=== PATIENT | female | born 1955 | race American Indian/Alaskan Native ===

== ENCOUNTER 2017-02-28 17:34 | Inpatient (IN) | payer MEDICARE ==
[2017-02-28 18:12] LABS: Basophils % (Auto) 0.3 % (0.0-1.8); Eosinophils # (Auto) 0.1 K/mm3 (0.0-0.4); Hematocrit 31.2 % (30.3-42.9); Hemoglobin 9.7 gm/dl (10.1-14.3); Lymphocytes # (Auto) 2.1 K/mm3 (1.2-5.4); Lymphocytes % (Auto) 29.7 % (13.4-35.0); Mean Corpuscular HGB Conc 31 % (30-34); Mean Corpuscular Hemoglobin 26 pg (28-32); Mean Corpuscular Volume 83 fl (79-97); Monocytes # (Auto) 0.5 K/mm3 (0.0-0.8); Platelet Count 206 K/mm3 (140-440); Red Blood Count 3.74 M/mm3 (3.65-5.03); Red Cell Distribution Width 15.5 % (13.2-15.2)
[2017-02-28 18:33] LABS: INR 0.84 (0.87-1.13)
[2017-02-28 18:34] LABS: Partial Thromboplastin Time 27.7 Sec. (24.2-36.6); Thrombin Time 16.1 Sec. (15.1-19.6)
[2017-02-28 18:35] LABS: BUN/Creatinine Ratio 25; Blood Urea Nitrogen 28 mg/dL (7-17); Calcium 9.3 mg/dL (8.4-10.2); Hemolysis Index 8
--- NOTE | 2017-02-28 19:39 | Cat Scan Report ---
FINAL REPORT EXAM: CT HEAD/BRAIN WO CON HISTORY: neuro deficits < 6hrs or sx present upon awakening TECHNIQUE: Standard unenhanced CT of the head at 5.0 millimeter axial increments. PRIORS: None. FINDINGS: The ventricular system is normal in size and configuration. There is no evidence for parenchymal volume loss. Low-density in the periventricular white matter is the consistent with small vessel ischemic changes. There is no evidence for mass lesion, mass effect, midline shift, acute intracranial hemorrhage, or acute ischemia/ infarction. No evidence for acute skull fracture is seen. No abnormality in the overlying scalp soft tissues is seen. Visualized paranasal sinuses are clear. IMPRESSION: small-vessel ischemic changes. No acute intracranial process noted.
--- NOTE | 2017-02-28 20:15 | Emergency Department Report ---
ED Neuro Deficit HPI - General Chief Complaint: Neuro Symptoms/Deficit Stated Complaint: NUMBNESS, HX CVA Time Seen by Provider: 02/28/17 18:49 Source: patient, EMS Mode of arrival: Stretcher Limitations: Physical Limitation - History of Present Illness Initial Comments: Patient is a 61-year-old female with past medical history of hypertension and CVA with residual weakness on the left upper and lower extremity was presenting with numbness and increased weakness. Patient states that only 4 PM today she began having some increased numbness. Patient called her daughter and told her and they decided to have the patient brought to the emergency department. Patient has had no syncope headache nausea vomiting diarrhea chest pain at this time. Presenting Symptoms: Absent: Weak/Paralyzed One Side, Sudden, Severe Headache, Blurred/Loss of Vision, Facial Droop/Numbness, Unable to Speak Clearly, Altered Mental Status Severity: mild (patient states that she already has weakness to the left side but the weakness is slightly worse patient has a slight increase in her limp) Treatments Prior to Arrival: Aspirin (patient took an aspirin prior to arrival) - Related Data Home Medications: Home Medications Medication Instructions Recorded Confirmed Last Taken Aspirin [Aspirin TAB] 1 tab PO DAILY 09/22/13 09/25/13 09/24/13 Brinzolamide/Brimonidine Tart 1 drop OU DAILY 09/22/13 09/25/13 09/24/13 [Simbrinza 1%-0.2% Eye Drops] Ferrous Sulfate [Iron Supplement 1 tab PO DAILY 09/22/13 09/25/13 09/24/13 325 Mg tab] Insulin Aspart [NovoLOG 100 10 units SC TID 09/22/13 09/25/13 09/24/13 UNITS/ML VIAL] Insulin Glargine,Hum.rec.anlog 20 units SC QHS 09/22/13 09/25/13 09/24/13 [Lantus] Lisinopril [Zestril] 1 tab PO DAILY 09/22/13 09/25/13 09/25/13 Lovastatin [Mevacor] 1 tab PO DAILY 09/22/13 09/25/13 09/24/13 Sertraline [Zoloft] 1 tab PO DAILY 09/22/13 09/25/13 09/24/13 Sitagliptin Phosphate [Januvia] 1 tab PO DAILY 09/22/13 09/25/13 09/24/13 amLODIPine [Norvasc] 1 tab PO DAILY 09/22/13 09/25/13 09/25/13 metFORMIN [Glucophage] 1 tab PO DAILY 09/22/13 09/25/13 09/24/13 Allergies/Adverse Reactions: Allergies Allergy/AdvReac Type Severity Reaction Status Date / Time No Known Allergies Allergy Verified 09/22/13 14:45 ED Review of Systems ROS: Stated complaint: NUMBNESS, HX CVA Other details as noted in HPI Comment: All other systems reviewed and negative ED Past Medical Hx - Past Medical History Previous Medical History?: Yes Hx CVA: Yes (left side weakness residual) Hx Diabetes: Yes Hx Asthma: No Hx COPD: No Hx Tuberculosis: No - Surgical History Past Surgical History?: Yes Hx Cholecystectomy: Yes - Social History Smoking Status: Former Smoker Substance Use Type: Prescribed - Medications Home Medications: Home Medications Medication Instructions Recorded Confirmed Last Taken Type Aspirin [Aspirin TAB] 1 tab PO DAILY 09/22/13 09/25/13 09/24/13 History Brinzolamide/Brimonidine Tart 1 drop OU DAILY 09/22/13 09/25/13 09/24/13 History [Simbrinza 1%-0.2% Eye Drops] Ferrous Sulfate [Iron Supplement 1 tab PO DAILY 09/22/13 09/25/13 09/24/13 History 325 Mg tab] Insulin Aspart [NovoLOG 100 10 units SC TID 09/22/13 09/25/13 09/24/13 History UNITS/ML VIAL] Insulin Glargine,Hum.rec.anlog 20 units SC QHS 09/22/13 09/25/13 09/24/13 History [Lantus] Lisinopril [Zestril] 1 tab PO DAILY 09/22/13 09/25/13 09/25/13 History Lovastatin [Mevacor] 1 tab PO DAILY 09/22/13 09/25/13 09/24/13 History Sertraline [Zoloft] 1 tab PO DAILY 09/22/13 09/25/13 09/24/13 History Sitagliptin Phosphate [Januvia] 1 tab PO DAILY 09/22/13 09/25/13 09/24/13 History amLODIPine [Norvasc] 1 tab PO DAILY 09/22/13 09/25/13 09/25/13 History metFORMIN [Glucophage] 1 tab PO DAILY 09/22/13 09/25/13 09/24/13 History ED Neuro Physical Exam - General Limitations: Physical Limitation General appearance: alert, in no apparent distress Suspected Stroke: Yes - Head Head exam: Present: atraumatic, normocephalic - Eye Eye exam: Present: normal appearance - ENT ENT exam: Present: mucous membranes moist - Neck Neck exam: Present: normal inspection - Respiratory Respiratory exam: Present: normal lung sounds bilaterally. Absent: respiratory distress - Cardiovascular Cardiovascular Exam: Present: regular rate, normal rhythm. Absent: systolic murmur, diastolic murmur, rubs, gallop - GI/Abdominal GI/Abdominal exam: Present: soft, normal bowel sounds - Extremities Exam Extremities exam: Present: normal inspection - Back Exam Back exam: Present: normal inspection - Neurological Exam Neurological exam: Present: alert, oriented X3 - NIHSS Assessment Interval: Baseline 1a. Level of Consciousness: alert 1b. LOC Questions: answers correctly 1c. LOC Commands: performs tasks correctly 2. Best Gaze: normal 3. Visual: no visual loss 4. Facial Palsy: normal symmetrical movement 5b. Motor Arm Right: no drift 5a. Motor Arm Left: drift 6a. Motor Leg Left: no drift 6b. Motor Leg Right: drift 7. Limb Ataxia: absent 8. Sensory: mild/moderate sensory loss 9. Best Language: no aphasia 10. Dysarthria: normal 11. Extinction/Inattention: no abnormality Total Score: 3 Stroke Severity: Minor Stroke - Psychiatric Psychiatric exam: Present: normal affect, normal mood - Skin Skin exam: Present: warm, dry, intact, normal color. Absent: rash ED Course Vital Signs 02/28/17 02/28/17 02/28/17 17:45 17:49 18:00 Temperature 97.5 F L Pulse Rate 74 74 76 Respiratory 15 16 Rate Blood Pressure 132/73 142/83 O2 Sat by Pulse 100 100 100 Oximetry 02/28/17 02/28/17 02/28/17 18:16 18:30 19:00 Temperature Pulse Rate 74 73 Respiratory 12 23 18 Rate Blood Pressure 142/83 142/83 O2 Sat by Pulse 97 98 99 Oximetry - Lab Data Result diagrams: 02/28/17 18:00 02/28/17 18:00 Lab Results 02/28/17 02/28/17 02/28/17 Range/Units 18:00 18:00 18:00 WBC 7.2 (4.5-11.0) K/mm3 RBC 3.74 (3.65-5.03) M/mm3 Hgb 9.7 L (10.1-14.3) gm/dl Hct 31.2 (30.3-42.9) % MCV 83 (79-97) fl MCH 26 L (28-32) pg MCHC 31 (30-34) % RDW 15.5 H (13.2-15.2) % Plt Count 206 (140-440) K/mm3 Lymph % (Auto) 29.7 (13.4-35.0) % [place] % (Auto) 7.0 (0.0-7.3) % Eos % (Auto) 1.0 (0.0-4.3) % Baso % (Auto) 0.3 (0.0-1.8) % Lymph # 2.1 (1.2-5.4) K/mm3 [place] # 0.5 (0.0-0.8) K/mm3 Eos # 0.1 (0.0-0.4) K/mm3 Baso # 0.0 (0.0-0.1) K/mm3 Seg Neutrophils % 62.0 (40.0-70.0) % Seg Neutrophils # 4.5 (1.8-7.7) K/mm3 PT 11.9 L (12.2-14.9) Sec. INR 0.84 L (0.87-1.13) APTT 27.7 (24.2-36.6) Sec. Thrombin Time 16.1 (15.1-19.6) Sec. Sodium 142 (137-145) mmol/L Potassium 4.2 (3.6-5.0) mmol/L Chloride 104.4 (98-107) mmol/L Carbon Dioxide 26 (22-30) mmol/L Anion Gap 16 mmol/L BUN 28 H (7-17) mg/dL Creatinine 1.1 (0.7-1.2) mg/dL Estimated GFR > 60 ml/min BUN/Creatinine Ratio 25 % Glucose 112 H (65-100) mg/dL Calcium 9.3 (8.4-10.2) mg/dL Troponin T < 0.010 (0.00-0.029) ng/mL - Medical Decision Making Patient is a 61-year-old female with a past medical history of stroke who is having slight increase in her lamp and weakness on the left side. Patient's symptoms are only slightly increased from her baseline. Patient will be admitted for further evaluation and neuro consult. Patient is not meeting criteria for TPA Critical care attestation.: If time is entered above; I have spent that time in minutes in the direct care of this critically ill patient, excluding procedure time. ED Disposition Clinical Impression: CVA (cerebral vascular accident) Disposition: DC-[id number] OP ADMIT IP TO THIS HOSP Is pt being admited?: Yes Does the pt Need Aspirin: No Condition: Stable Referrals: LUZ MCMAHAN MD [Primary Care Provider] - 3-5 Days
[2017-02-28] MEDS ORDERED: ZOFRAN IV PRN (20:29)
[2017-02-28] MEDS ORDERED: TYLENOL PO PRN (20:29)
[2017-02-28] MEDS ORDERED: SODIUM CHLORIDE FLUSH SYRINGE 10 ML IV PRN (20:29)
[2017-02-28] MEDS ORDERED: REGLAN PO PRN (20:29)
[2017-02-28] MEDS ORDERED: DULCOLAX PR PRN (20:29)
[2017-02-28] MEDS ORDERED: PHENERGAN PR PRN (20:29)
[2017-02-28] MEDS ORDERED: MILK OF MAGNESIA PO PRN (20:29)
--- NOTE | 2017-02-28 20:29 | History and Physical Report ---
History of Present Illness Chief complaint: I feel weak on my left side History of present illness: 61 YO Female with MO, DM, HTN, CVA with LHP, Metabolic Syndrome presents to ED for evaluation. Pt states that she experienced acute onset left sided weakness and numbness. Patient states that aroung 1600hrs today-she began having some increased numbness, weakness to her the left side of her body, as well as slurred speech. Patient called her daughter and told her and they decided to have the patient brought to the emergency department. EMS notified and patient transported to [facility] for evaluation. Pt seen and evaluated in ED and found to have slurred speech, and Left hemiparesis, but is outside the therapeutic window for TPA. Patient denies fever, chills, CP, Palpitations, NVD, syncope, headache, blurred vision, headache, productive cough, trauma, recent ill contacts, unintentional weight loss, night sweats, leg swelling, calf pain, prolonged travel/immobility, individual/family history of DVT/PE, hemoptysis, or malignancy. Past History Past Medical History: diabetes, hypertension, stroke Past Surgical History: cholecystectomy Social history: single. denies: smoking, alcohol abuse, prescription drug abuse Family history: hypertension Medications and Allergies Allergies Allergy/AdvReac Type Severity Reaction Status Date / Time No Known Allergies Allergy Verified 09/22/13 14:45 Home Medications Medication Instructions Recorded Confirmed Last Taken Type Aspirin [Aspirin TAB] 1 tab PO DAILY 09/22/13 03/01/17 1 Day Ago History ~02/28/17 Brinzolamide/Brimonidine Tart 1 drop OU DAILY 09/22/13 03/01/17 2 Days Ago History [Simbrinza 1%-0.2% Eye Drops] ~02/27/17 Ferrous Sulfate [Iron Supplement 1 tab PO DAILY 09/22/13 03/01/17 2 Days Ago History 325 Mg tab] ~02/27/17 Insulin Aspart [NovoLOG 100 10 units SC TID 09/22/13 03/01/17 2 Days Ago History UNITS/ML VIAL] ~02/27/17 Insulin Glargine,Hum.rec.anlog 20 units SC QHS 09/22/13 03/01/17 2 Days Ago History [Lantus] ~02/27/17 Lisinopril [Zestril] 1 tab PO DAILY 09/22/13 03/01/17 2 Days Ago History ~02/27/17 Lovastatin [Mevacor] 1 tab PO DAILY 09/22/13 03/01/17 02/27/17 History Sertraline [Zoloft] 1 tab PO QHS 09/22/13 03/01/17 2 Days Ago History ~02/27/17 Sitagliptin Phosphate [Januvia] 1 tab PO DAILY 09/22/13 03/01/17 2 Days Ago History ~02/27/17 amLODIPine [Norvasc] 1 tab PO DAILY 09/22/13 03/01/17 1 Day Ago History ~02/28/17 metFORMIN [Glucophage] 1 tab PO DAILY 09/22/13 03/01/17 2 Days Ago History ~02/27/17 Review of Systems Constitutional: no weight loss, no weight gain, no fever, no chills Ears, nose, mouth and throat: no ear pain, no ear discharge, no tinnitis, no decreased hearing, no nose pain Breasts: no change in shape, no swelling, no mass Cardiovascular: no chest pain, no orthopnea, no palpitations, no rapid/ irregular heart beat, no edema, no syncope, no lightheadedness Respiratory: no cough, no cough with sputum, no excessive sputum, no hemoptysis , no shortness of breath Gastrointestinal: no abdominal pain, no nausea, no vomiting, no diarrhea, no constipation Genitourinary Female: no dysmenorrhea, no pelvic pain, no flank pain, no menorrhagia, no dysuria Rectal: no pain, no incontinence, no bleeding Musculoskeletal: no neck stiffness, no neck pain, no shooting arm pain, no arm numbness/tingling, no low back pain, no shooting leg pain, no leg numbness/ tingling, no redness of joints Integumentary: no rash, no pruritis, no redness, no sores, no wounds, no jaundice Neurological: transient paralysis, weakness, no seizures, no syncope, no tremors , no ataxia Psychiatric: no anxiety, no memory loss, no change in sleep habits, no sleep disturbances, no insomnia Endocrine: no cold intolerance, no heat intolerance, no polyphagia, no excessive thirst, no polydipsia Hematologic/Lymphatic: no easy bruising, no easy bleeding, no lymphadenopathy, no lymphedema Allergic/Immunologic: no urticaria, no allergic rhinitis, no wheezing, no persistent infections Exam - Constitutional Vitals: Temp Pulse Resp BP Pulse Ox 97.5 F L 73 18 142/83 99 02/28/17 17:49 02/28/17 18:30 02/28/17 19:00 02/28/17 18:30 02/28/17 19:00 General appearance: Present: obese, disheveled - EENT Eyes: Present: PERRL ENT: hearing intact, clear oral mucosa - Neck Neck: Present: supple, normal ROM - Respiratory Respiratory effort: normal Respiratory: bilateral: CTA - Cardiovascular Heart Sounds: Present: S1 & S2. Absent: rub, click - Extremities Extremities: pulses symmetrical, No edema Peripheral Pulses: within normal limits - Abdominal General gastrointestinal: Present: soft, non-tender, non-distended, normal bowel sounds Female genitourinary: Present: normal - Integumentary Integumentary: Present: clear, warm, dry - Musculoskeletal Musculoskeletal: left sided weakness - Psychiatric Psychiatric: appropriate mood/affect, intact judgment & insight - Neurologic Neurologic: CNII-XII intact, moves all extremities Results - Labs CBC & Chem 7: 02/28/17 18:00 02/28/17 18:00 Labs: Abnormal lab results 02/28/17 02/28/17 02/28/17 Range/Units 18:00 18:00 18:00 Hgb 9.7 L (10.1-14.3) gm/dl MCH 26 L (28-32) pg RDW 15.5 H (13.2-15.2) % PT 11.9 L (12.2-14.9) Sec. INR 0.84 L (0.87-1.13) BUN 28 H (7-17) mg/dL Glucose 112 H (65-100) mg/dL Assessment and Plan - Patient Problems (1) CVA (cerebral vascular accident) Current Visit: Yes Status: Acute Qualifiers: Precerebral and cerebral artery: middle cerebral artery Laterality of affected vessel: right Plan to address problem: Stroke protocol: CT Head, MRI Brain, MRA Brain, Echo, Carotid Doppler, Antiplatelet therapy, PT/OT/ Speech Therapy, Neuro Checks, lipid panel. (2) HTN (hypertension) Current Visit: Yes Status: Acute Qualifiers: Hypertension type: essential hypertension Qualified Code(s): I10 - Essential (primary) hypertension Plan to address problem: Monitor BP q shift, permissive hypertension overnight, Hold antihypertensive therapy for systolic less than 200. (3) Diabetes Current Visit: Yes Status: Acute Plan to address problem: ADA diet, insulin accu check (4) Metabolic syndrome Current Visit: Yes Status: Acute Plan to address problem: Balanced diet, lipid panel, increased physical activity at discharge (5) DVT prophylaxis Current Visit: Yes Status: Acute
[2017-02-28] MEDS ORDERED: INSULIN GLARGINE HUM REC ANLOG 20 UNIT SC SCH (22:00)
[2017-02-28] MEDS: LEVEMIR SUB-Q SCH (22:51)
[2017-02-28] MEDS: PRAVACHOL PO SCH (22:52)
[2017-02-28] MEDS: ZOLOFT PO SCH (23:58)
[2017-03-01 06:28] LABS: Chol/HDL Ratio 2.27 %
[2017-03-01] MEDS: NOVOLOG SUB-Q SCH ×3 (08:00→17:29)
[2017-03-01] MEDS ORDERED: BRIMONIDINE TART OU SCH (10:00)
[2017-03-01] MEDS ORDERED: LOVASTATIN PO SCH (10:00)
[2017-03-01] MEDS ORDERED: BRINZOLAMIDE OU SCH (10:00)
[2017-03-01] MEDS: FEOSOL PO SCH (13:45)
[2017-03-01] MEDS: ASPIRIN PO SCH (13:45)
[2017-03-01] MEDS: ZESTRIL PO SCH (13:46)
--- NOTE | 2017-03-01 14:35 | Magnetic Resonance Report ---
MRI BRAIN WITHOUT CONTRAST INDICATION: Stroke. COMPARISON: Yesterday's head CT. FINDINGS: Noncontrast multiplanar and multisequence MRI of the brain demonstrates a 4 mm acute infarct posteriorly in the [place] on the right. No other acute infarct, hemorrhage, mass effect or midline shift. No abnormal extra-axial masses or fluid collections. Age-appropriate ventricles and sulci with moderate periventricular and white matter FLAIR and T2 weighted hyperintensities. Few small lacunar infarcts as measuring up to 5-6 mm right linares radiata. Normal major intracranial vascular flow voids. Posterior fossa demonstrates preserved basilar cisterns with symmetric seventh and eighth nerve complexes. Bilateral cataract surgery. Mild leftward nasal septal deviation. Clear imaged paranasal sinuses and mastoid air cells. Normal midline structures without evidence of Chiari malformation. CONCLUSION: Small, 4 mm acute nonhemorrhagic right pontine infarct posteriorly in this patient with moderate microvascular changes and few lacunar infarcts as well, as described. Please correlate. Thank you for the opportunity to participate in this patient's care.
--- NOTE | 2017-03-01 14:39 | Magnetic Resonance Report ---
MRA HEAD WITHOUT CONTRAST INDICATION: Stroke. COMPARISON: None similar. FINDINGS: MRA of the head performed without intravenous contrast and demonstrates no evidence of occlusion or vascular malformation. Mild caliber attenuation of the left ICA distal to its anterior siphon/turn noted, left more than right as on axial source series 3, images 65-75 in this patient with extensive atherosclerotic ICA calcifications known by prior CT. Patent vertebrobasilar system. Please note that detection of aneurysms less than 5 mm is limited on this exam. CONCLUSION: Normal study of the [place]. Thank you for the opportunity to participate in this patient's care.
--- NOTE | 2017-03-01 16:15 | Progress Note ---
<ELIZABETH SHAFFER - Last Filed: 03/01/17 16:04> Assessment and Plan Assessment and plan: 61 YO Female with MO, DM, HTN, CVA with LHP, Metabolic Syndrome presents to ED for evaluation. Pt states that she experienced acute onset left sided weakness and numbness. Patient states that aroung 1600hrs today-she began having some increased numbness, weakness to her the left side of her body, as well as slurred speech. Patient called her daughter and told her and they decided to have the patient brought to the emergency department. Pt seen and evaluated in ED and found to have slurred speech, and Left hemiparesis, but is outside the therapeutic window for TPA. CVA (cerebral vascular accident) Stroke protocol: Continue Antiplatelet therapy, PT/OT/ Speech Therapy, Neuro Checks MRI Brain showed small 4mm acute nonhemorrhagic R pontine infarct- Neurology consulted Carotid doppler showed <50% STENOSIS NOTED BILAT BY DOPPLER VELOCITIES. BILAT. ANTEG. VERT FLOWS MRA Brain was normal, Echo results pending, CT Head showed no acute intracranial changes HTN (hypertension) Monitor BP q shift, permissive hypertension overnight, Hold antihypertensive therapy for systolic less than 200. Diabetes ADA diet, insulin accu check Metabolic syndrome Balanced diet, lipid panel, increased physical activity at discharge DVT prophylaxis SCDs History Interval history: Patient was seen and examined. She denies chest pain, shortness of breath, nausea, vomiting. Labs and nursing notes reviewed. Hospitalist Physical - Constitutional Vitals: Temp Pulse Resp BP Pulse Ox 98.7 F 73 18 149/75 91 03/01/17 07:10 03/01/17 14:00 03/01/17 07:10 03/01/17 13:46 03/01/17 07:10 General appearance: Present: no acute distress, obese, disheveled - EENT Eyes: Present: PERRL, EOM intact ENT: hearing intact, clear oral mucosa - Neck Neck: Present: supple, normal ROM - Respiratory Respiratory effort: normal Respiratory: bilateral: CTA - Cardiovascular Rhythm: regular Heart Sounds: Present: S1 & S2 - Extremities Extremities: no ischemia Extremity abnormal: edema - Abdominal General gastrointestinal: soft, non-tender - Integumentary Integumentary: Present: clear, warm, dry - Psychiatric Psychiatric: appropriate mood/affect, cooperative - Neurologic Neurologic: CNII-XII intact, moves all extremities - Allied Health Allied health notes reviewed: nursing Results - Labs CBC & Chem 7: 02/28/17 18:00 02/28/17 18:00 Labs: Laboratory Last Values WBC 7.2 K/mm3 (4.5-11.0) 02/28/17 18:00 RBC 3.74 M/mm3 (3.65-5.03) 02/28/17 18:00 Hgb 9.7 gm/dl (10.1-14.3) L 02/28/17 18:00 Hct 31.2 % (30.3-42.9) 02/28/17 18:00 MCV 83 fl (79-97) 02/28/17 18:00 MCH 26 pg (28-32) L 02/28/17 18:00 MCHC 31 % (30-34) 02/28/17 18:00 RDW 15.5 % (13.2-15.2) H 02/28/17 18:00 Plt Count 206 K/mm3 (140-440) 02/28/17 18:00 Lymph % (Auto) 29.7 % (13.4-35.0) 02/28/17 18:00 [place] % (Auto) 7.0 % (0.0-7.3) 02/28/17 18:00 Eos % (Auto) 1.0 % (0.0-4.3) 02/28/17 18:00 Baso % (Auto) 0.3 % (0.0-1.8) 02/28/17 18:00 Lymph # 2.1 K/mm3 (1.2-5.4) 02/28/17 18:00 [place] # 0.5 K/mm3 (0.0-0.8) 02/28/17 18:00 Eos # 0.1 K/mm3 (0.0-0.4) 02/28/17 18:00 Baso # 0.0 K/mm3 (0.0-0.1) 02/28/17 18:00 Seg Neutrophils % 62.0 % (40.0-70.0) 02/28/17 18:00 Seg Neutrophils # 4.5 K/mm3 (1.8-7.7) 02/28/17 18:00 PT 11.9 Sec. (12.2-14.9) L 02/28/17 18:00 INR 0.84 (0.87-1.13) L 02/28/17 18:00 APTT 27.7 Sec. (24.2-36.6) 02/28/17 18:00 Thrombin Time 16.1 Sec. (15.1-19.6) 02/28/17 18:00 Sodium 142 mmol/L (137-145) 02/28/17 18:00 Potassium 4.2 mmol/L (3.6-5.0) 02/28/17 18:00 Chloride 104.4 mmol/L (98-107) 02/28/17 18:00 Carbon Dioxide 26 mmol/L (22-30) 02/28/17 18:00 Anion Gap 16 mmol/L 02/28/17 18:00 BUN 28 mg/dL (7-17) H 02/28/17 18:00 Creatinine 1.1 mg/dL (0.7-1.2) 02/28/17 18:00 Estimated GFR > 60 ml/min 02/28/17 18:00 BUN/Creatinine Ratio 25 % 02/28/17 18:00 Glucose 112 mg/dL (65-100) H 02/28/17 18:00 POC Glucose 149 (70-105) H 03/01/17 07:17 Calcium 9.3 mg/dL (8.4-10.2) 02/28/17 18:00 Troponin T < 0.010 ng/mL (0.00-0.029) 02/28/17 18:00 Triglycerides 171 mg/dL (2-149) H 03/01/17 05:43 Cholesterol 173 mg/dL (50-199) 03/01/17 05:43 LDL Cholesterol Direct 63 mg/dL (50-130) 03/01/17 05:43 HDL Cholesterol 76 mg/dL (40-59) H 03/01/17 05:43 Cholesterol/HDL Ratio 2.27 % 03/01/17 05:43 - Imaging and Cardiology MRI - head: report reviewed <JOSSY PATEL R - Last Filed: 03/02/17 10:01> Assessment and Plan Assessment and plan: I saw and evaluated the patient. I agree with the findings and the plan of care as documented in the Nurse Practitioner's~note. Hospitalist Physical - Constitutional Vitals: Temp Pulse Resp BP Pulse Ox 98.5 F 87 20 151/79 96 03/02/17 08:50 03/02/17 08:50 03/02/17 08:50 03/02/17 08:50 03/02/17 08:50 Results - Labs CBC & Chem 7: 02/28/17 18:00 02/28/17 18:00 Labs: Laboratory Last Values WBC 7.2 K/mm3 (4.5-11.0) 02/28/17 18:00 RBC 3.74 M/mm3 (3.65-5.03) 02/28/17 18:00 Hgb 9.7 gm/dl (10.1-14.3) L 02/28/17 18:00 Hct 31.2 % (30.3-42.9) 02/28/17 18:00 MCV 83 fl (79-97) 02/28/17 18:00 MCH 26 pg (28-32) L 02/28/17 18:00 MCHC 31 % (30-34) 02/28/17 18:00 RDW 15.5 % (13.2-15.2) H 02/28/17 18:00 Plt Count 206 K/mm3 (140-440) 02/28/17 18:00 Lymph % (Auto) 29.7 % (13.4-35.0) 02/28/17 18:00 [place] % (Auto) 7.0 % (0.0-7.3) 02/28/17 18:00 Eos % (Auto) 1.0 % (0.0-4.3) 02/28/17 18:00 Baso % (Auto) 0.3 % (0.0-1.8) 02/28/17 18:00 Lymph # 2.1 K/mm3 (1.2-5.4) 02/28/17 18:00 [place] # 0.5 K/mm3 (0.0-0.8) 02/28/17 18:00 Eos # 0.1 K/mm3 (0.0-0.4) 02/28/17 18:00 Baso # 0.0 K/mm3 (0.0-0.1) 02/28/17 18:00 Seg Neutrophils % 62.0 % (40.0-70.0) 02/28/17 18:00 Seg Neutrophils # 4.5 K/mm3 (1.8-7.7) 02/28/17 18:00 PT 11.9 Sec. (12.2-14.9) L 02/28/17 18:00 INR 0.84 (0.87-1.13) L 02/28/17 18:00 APTT 27.7 Sec. (24.2-36.6) 02/28/17 18:00 Thrombin Time 16.1 Sec. (15.1-19.6) 02/28/17 18:00 Sodium 142 mmol/L (137-145) 02/28/17 18:00 Potassium 4.2 mmol/L (3.6-5.0) 02/28/17 18:00 Chloride 104.4 mmol/L (98-107) 02/28/17 18:00 Carbon Dioxide 26 mmol/L (22-30) 02/28/17 18:00 Anion Gap 16 mmol/L 02/28/17 18:00 BUN 28 mg/dL (7-17) H 02/28/17 18:00 Creatinine 1.1 mg/dL (0.7-1.2) 02/28/17 18:00 Estimated GFR > 60 ml/min 02/28/17 18:00 BUN/Creatinine Ratio 25 % 02/28/17 18:00 Glucose 112 mg/dL (65-100) H 02/28/17 18:00 POC Glucose 72 (70-105) 03/01/17 21:10 Calcium 9.3 mg/dL (8.4-10.2) 02/28/17 18:00 Troponin T < 0.010 ng/mL (0.00-0.029) 02/28/17 18:00 Triglycerides 171 mg/dL (2-149) H 03/01/17 05:43 Cholesterol 173 mg/dL (50-199) 03/01/17 05:43 LDL Cholesterol Direct 63 mg/dL (50-130) 03/01/17 05:43 HDL Cholesterol 76 mg/dL (40-59) H 03/01/17 05:43 Cholesterol/HDL Ratio 2.27 % 03/01/17 05:43
--- NOTE | 2017-03-01 17:07 | Consultation ---
History of Present Illness Consult date: 03/01/17 History of present illness: expalined the HTN related stroke to patient I went over the MRA/MRI no arterial blockage 4 mm lacnar stroke louis Past History Past Medical History: diabetes, hypertension, stroke Past Surgical History: cholecystectomy Social history: single. denies: smoking, alcohol abuse, prescription drug abuse Family history: hypertension Medications and Allergies Allergies Allergy/AdvReac Type Severity Reaction Status Date / Time No Known Allergies Allergy Verified 09/22/13 14:45 Home Medications Medication Instructions Recorded Confirmed Last Taken Type Aspirin [Aspirin TAB] 1 tab PO DAILY 09/22/13 03/01/17 1 Day Ago History ~02/28/17 Brinzolamide/Brimonidine Tart 1 drop OU DAILY 09/22/13 03/01/17 2 Days Ago History [Simbrinza 1%-0.2% Eye Drops] ~02/27/17 Ferrous Sulfate [Iron Supplement 1 tab PO DAILY 09/22/13 03/01/17 2 Days Ago History 325 Mg tab] ~02/27/17 Insulin Aspart [NovoLOG 100 10 units SC TID 09/22/13 03/01/17 2 Days Ago History UNITS/ML VIAL] ~02/27/17 Insulin Glargine,Hum.rec.anlog 20 units SC QHS 09/22/13 03/01/17 2 Days Ago History [Lantus] ~02/27/17 Lisinopril [Zestril] 1 tab PO DAILY 09/22/13 03/01/17 2 Days Ago History ~02/27/17 Lovastatin [Mevacor] 1 tab PO DAILY 09/22/13 03/01/17 02/27/17 History Sertraline [Zoloft] 1 tab PO QHS 09/22/13 03/01/17 2 Days Ago History ~02/27/17 Sitagliptin Phosphate [Januvia] 1 tab PO DAILY 09/22/13 03/01/17 2 Days Ago History ~02/27/17 amLODIPine [Norvasc] 1 tab PO DAILY 09/22/13 03/01/17 1 Day Ago History ~02/28/17 metFORMIN [Glucophage] 1 tab PO DAILY 09/22/13 03/01/17 2 Days Ago History ~02/27/17 Active Meds: Active Medications Acetaminophen (Tylenol) 650 mg PO Q4H PRN PRN Reason: Pain, Mild (1-3) Aspirin (Aspirin) 325 mg PO QDAY [facility] Last Admin: 03/01/17 13:45 Dose: 325 mg Bisacodyl (Dulcolax) 10 mg [place] QDAY PRN PRN Reason: Constipation Ferrous Sulfate (Feosol) 325 mg PO DAILY [facility] Last Admin: 03/01/17 13:45 Dose: 325 mg Insulin Aspart (Novolog) 10 units SUB-Q TIDAC [facility] Last Admin: 03/01/17 13:45 Dose: 10 units Insulin Detemir (Levemir) 20 units SUB-Q QHS [facility] Last Admin: 02/28/17 22:51 Dose: 20 units Lisinopril (Zestril) 40 mg PO DAILY [facility] Last Admin: 03/01/17 13:46 Dose: 40 mg Magnesium Hydroxide (Milk Of Magnesia) 30 ml PO Q4H PRN PRN Reason: Constipation Metoclopramide HCl (Reglan) 10 mg PO Q6H PRN PRN Reason: Nausea And Vomiting Miscellaneous Medication (Brinzolamide/Brimonidine Tart [Simbrinza 1%-0.2% Eye Drops]) 1 drop OU DAILY [facility] Ondansetron HCl (Zofran) 4 mg IV Q8H PRN PRN Reason: N/V unrelieved by Reglan Pravastatin Sodium (Pravachol) 20 mg PO QHS [facility] Last Admin: 02/28/17 22:52 Dose: 20 mg Promethazine HCl (Phenergan) 25 mg [place] Q6H PRN PRN Reason: Nausea And Vomiting Sertraline HCl (Zoloft) 100 mg PO QDAY@2200 [facility] Last Admin: 02/28/17 23:58 Dose: 100 mg Sodium Chloride (Sodium Chloride Flush Syringe 10 Ml) 10 ml IV PRN PRN PRN Reason: LINE FLUSH Physical Examination - Vital Signs Vital Signs: Vital Signs Pulse Resp Pulse Ox 74 15 100 02/28/17 17:45 02/28/17 17:45 02/28/17 17:45 Results - Laboratory Findings CBC and BMP: 02/28/17 18:00 02/28/17 18:00 Abnormal Lab Findings: Abnormal Labs 01/07/18 01/07/18 01/07/18 18:00 18:00 18:00 Hgb 9.7 L MCH 26 L RDW 15.5 H PT 11.9 L INR 0.84 L BUN 28 H Glucose 112 H POC Glucose Triglycerides HDL Cholesterol 03/01/17 03/01/17 05:43 07:17 Hgb MCH RDW PT INR BUN Glucose POC Glucose 149 H Triglycerides 171 H HDL Cholesterol 76 H
[2017-03-01] MEDS: ZOLOFT PO SCH (21:00)
[2017-03-01] MEDS: PRAVACHOL PO SCH (21:00)
[2017-03-01] MEDS: LEVEMIR SUB-Q SCH (21:39)
--- NOTE | 2017-03-02 09:04 | Progress Note ---
Assessment and Plan Assessment and plan: 61 YO Female with MO, DM, HTN, CVA with LHP, Metabolic Syndrome presents to ED for evaluation. Pt states that she experienced acute onset left sided weakness and numbness. Patient states that aroung 1600hrs today-she began having some increased numbness, weakness to her the left side of her body, as well as slurred speech. Patient called her daughter and told her and they decided to have the patient brought to the emergency department. Pt seen and evaluated in ED and found to have slurred speech, and Left hemiparesis, but is outside the therapeutic window for TPA. CVA (cerebral vascular accident) Stroke protocol: Continue Antiplatelet therapy, PT/OT/ Speech Therapy, Neuro Checks MRI Brain showed small 4mm acute nonhemorrhagic R pontine infarct- Neurology following Carotid doppler showed <50% STENOSIS NOTED BILAT BY DOPPLER VELOCITIES. BILAT. ANTEG. VERT FLOWS MRA Brain was normal, Echo results pending, CT Head showed no acute intracranial changes HTN (hypertension) Monitor BP q shift, permissive hypertension overnight, Hold antihypertensive therapy for systolic less than 200. Diabetes ADA diet, insulin accu check Metabolic syndrome Balanced diet, lipid panel, increased physical activity at discharge DVT prophylaxis SCDs Hospitalist Physical - Constitutional Vitals: Temp Pulse Resp BP Pulse Ox 98.5 F 87 20 151/79 96 03/02/17 08:50 03/02/17 08:50 03/02/17 08:50 03/02/17 08:50 03/02/17 08:50 General appearance: Present: no acute distress, obese, disheveled Results - Labs CBC & Chem 7: 02/28/17 18:00 02/28/17 18:00 Labs: Laboratory Last Values WBC 7.2 K/mm3 (4.5-11.0) 02/28/17 18:00 RBC 3.74 M/mm3 (3.65-5.03) 02/28/17 18:00 Hgb 9.7 gm/dl (10.1-14.3) L 02/28/17 18:00 Hct 31.2 % (30.3-42.9) 02/28/17 18:00 MCV 83 fl (79-97) 02/28/17 18:00 MCH 26 pg (28-32) L 02/28/17 18:00 MCHC 31 % (30-34) 02/28/17 18:00 RDW 15.5 % (13.2-15.2) H 02/28/17 18:00 Plt Count 206 K/mm3 (140-440) 02/28/17 18:00 Lymph % (Auto) 29.7 % (13.4-35.0) 02/28/17 18:00 Holmes % (Auto) 7.0 % (0.0-7.3) 02/28/17 18:00 Eos % (Auto) 1.0 % (0.0-4.3) 02/28/17 18:00 Baso % (Auto) 0.3 % (0.0-1.8) 02/28/17 18:00 Lymph # 2.1 K/mm3 (1.2-5.4) 02/28/17 18:00 Holmes # 0.5 K/mm3 (0.0-0.8) 02/28/17 18:00 Eos # 0.1 K/mm3 (0.0-0.4) 02/28/17 18:00 Baso # 0.0 K/mm3 (0.0-0.1) 02/28/17 18:00 Seg Neutrophils % 62.0 % (40.0-70.0) 02/28/17 18:00 Seg Neutrophils # 4.5 K/mm3 (1.8-7.7) 02/28/17 18:00 PT 11.9 Sec. (12.2-14.9) L 02/28/17 18:00 INR 0.84 (0.87-1.13) L 02/28/17 18:00 APTT 27.7 Sec. (24.2-36.6) 02/28/17 18:00 Thrombin Time 16.1 Sec. (15.1-19.6) 02/28/17 18:00 Sodium 142 mmol/L (137-145) 02/28/17 18:00 Potassium 4.2 mmol/L (3.6-5.0) 02/28/17 18:00 Chloride 104.4 mmol/L (98-107) 02/28/17 18:00 Carbon Dioxide 26 mmol/L (22-30) 02/28/17 18:00 Anion Gap 16 mmol/L 02/28/17 18:00 BUN 28 mg/dL (7-17) H 02/28/17 18:00 Creatinine 1.1 mg/dL (0.7-1.2) 02/28/17 18:00 Estimated GFR > 60 ml/min 02/28/17 18:00 BUN/Creatinine Ratio 25 % 02/28/17 18:00 Glucose 112 mg/dL (65-100) H 02/28/17 18:00 POC Glucose 72 (70-105) 03/01/17 21:10 Calcium 9.3 mg/dL (8.4-10.2) 02/28/17 18:00 Troponin T < 0.010 ng/mL (0.00-0.029) 02/28/17 18:00 Triglycerides 171 mg/dL (2-149) H 03/01/17 05:43 Cholesterol 173 mg/dL (50-199) 03/01/17 05:43 LDL Cholesterol Direct 63 mg/dL (50-130) 03/01/17 05:43 HDL Cholesterol 76 mg/dL (40-59) H 03/01/17 05:43 Cholesterol/HDL Ratio 2.27 % 03/01/17 05:43
[2017-03-02] MEDS: ZESTRIL PO SCH (09:12)
[2017-03-02] MEDS: FEOSOL PO SCH (09:12)
[2017-03-02] MEDS: ASPIRIN PO SCH (09:12)
[2017-03-02] MEDS: NOVOLOG SUB-Q SCH ×2 (09:14→11:30)
[2017-03-02 12:40] VITALS: BP 127/69
--- NOTE | 2017-03-02 14:10 | Discharge Summary ---
<JOSSY PATEL - Last Filed: 03/02/17 14:38> Providers - Providers Date of Admission: 02/28/17 20:29 Attending physician: JOSSY PATEL 02/28/17 20:31 Occupational Therapy Evaluate and Treat [CONS] Routine Comment: Reason For Exam: Neuro deficits Physical Therapy Evaluation and Treat [CONS] Routine Comment: Reason For Exam: Neuro deficits 03/01/17 14:46 Consult to Physician [CONS] Routine Consulting Provider: MATEO MARKHAM Reason For Exam: acute cva Place consult to:: Notified:: Phone number called:: [phone] Was contact made?: Yes If yes, spoke with:: ARIS Vyas called:: 17:02 Comment:: [facility] Primary care physician: LUZ MCMAHAN Hospitalization Condition: Stable Disposition: DC/[place]-06 HOME UNDER HOME HLTH Exam - Constitutional Vitals: Temp Pulse Resp BP Pulse Ox 99.0 F 73 20 127/69 97 03/02/17 12:38 03/02/17 12:38 03/02/17 12:38 03/02/17 12:38 03/02/17 12:38 Plan Follow up with: LUZ MCMAHAN MD [Primary Care Provider] - 3-5 Days Prescriptions: Aspirin [Aspirin TAB] 325 mg PO QDAY #30 tablet Lovastatin [Altoprev] 20 mg PO QPM #30 tab.er.24h <ELIZABETH SHAFFER - Last Filed: 03/03/17 09:21> Providers - Providers Date of Admission: 02/28/17 20:29 Date of discharge: 03/02/17 Attending physician: JOSSY PATEL 02/28/17 20:31 Occupational Therapy Evaluate and Treat [CONS] Routine Comment: Reason For Exam: Neuro deficits Physical Therapy Evaluation and Treat [CONS] Routine Comment: Reason For Exam: Neuro deficits 03/01/17 14:46 Consult to Physician [CONS] Routine Consulting Provider: MATEO MARKHAM Reason For Exam: acute cva Place consult to:: Notified:: Phone number called:: [phone] Was contact made?: Yes If yes, spoke with:: ARIS Vyas called:: 17:02 Comment:: [facility] Primary care physician: LUZ MCMAHAN Hospitalization Pertinent studies: MRI Brain showed small 4mm acute nonhemorrhagic R pontine infarct Carotid doppler showed <50% STENOSIS NOTED BILAT BY DOPPLER VELOCITIES. BILAT. ANTEG. VERT FLOWS MRA Brain was normal Echo showed EF 45-50% CT Head showed no acute intracranial changes Hospital course: 61 YO Female with MO, DM, HTN, CVA with LHP, Metabolic Syndrome presents to ED for evaluation. Pt states that she experienced acute onset left sided weakness and numbness. Patient states that around 1600hrs today-she began having some increased numbness, weakness to her the left side of her body, as well as slurred speech. Patient called her daughter and told her and they decided to have the patient brought to the emergency department. Pt seen and evaluated in ED and found to have slurred speech, and Left hemiparesis, but is outside the therapeutic window for TPA. Patient was found to have an acute non-hemorrhagic stroke and resumed home medications which included aspirin and statin therapy. She was evaluated by PT who recommended rehab which patient will have at home. Discharge Diagnoses CVA (cerebral vascular accident) HTN (hypertension) Diabetes Metabolic syndrome DVT prophylaxis Core Measure Documentation - Palliative Care Palliative Care/ Comfort Measures: Not Applicable - Core Measures Any of the following diagnoses?: stroke - Stroke Discharge Requirements Statin for LDL = or >70 mg/dl on DC: Yes Anticoag for atrial fib/atrial flutter: Not Applicable Antithrombotic for ischemic stroke: Yes Exam - Constitutional Vitals: Temp Pulse Resp BP Pulse Ox 99.0 F 73 20 127/69 97 03/02/17 12:38 03/02/17 12:38 03/02/17 12:38 03/02/17 12:38 03/02/17 12:38 General appearance: Present: no acute distress, well-nourished - EENT Eyes: Present: PERRL ENT: hearing intact, clear oral mucosa - Neck Neck: Present: supple, normal ROM - Respiratory Respiratory effort: normal Respiratory: bilateral: CTA - Cardiovascular Heart Sounds: Present: S1 & S2. Absent: rub, click - Extremities Extremities: pulses symmetrical, No edema Peripheral Pulses: within normal limits - Abdominal General gastrointestinal: Present: soft, non-tender, non-distended, normal bowel sounds Female genitourinary: Present: deferred - Rectal Rectal Exam: deferred - Integumentary Integumentary: Present: clear, warm, dry - Musculoskeletal Musculoskeletal: left sided weakness - Psychiatric Psychiatric: appropriate mood/affect, intact judgment & insight - Neurologic Neurologic: moves all extremities - Allied Health Allied health notes reviewed: nursing Plan Activity: fall precautions Weight Bearing Status: Weight Bear as Tolerated Diet: low fat, low cholesterol, low salt, diabetic
--- NOTE | 2017-03-07 14:45 | Vascular Lab Report ---
CAROTID DUPLEX STUDY: RIGHT PSVEDV CCA [id number] CCA DIST:[id number] ICA PROX:6918 ICA MID:6825 ICA DIST:7027 ECA: 125 VERT: 41 15 LEFT PSVEDV CCA [id number] CCA DIST:6515 ICA PROX:7219 ICA MID:6322 ICA DIST:5420 ECA: 89 VERT: 47 13 REASON FOR EXAM: Stroke. COMMENTS ON THE RIGHT: Doppler frequency analysis is consistent with 16 to 49 percent diameter reduction of the internal carotid artery. Extensive, irregular surface calcified plaque is seen in the bulb. The common carotid artery is patent. The external carotid artery is patent. The vertebral artery has antegrade flow. COMMENTS ON THE LEFT: Doppler frequency analysis is consistent with 16 to 49 percent diameter reduction of the internal carotid artery. As on the right, extensive irregular surface calcified plaque is seen at the level of the bulb. The common carotid artery is patent. The external carotid artery is patent. The vertebral artery has antegrade flow. IMPRESSION: Less than 50% diameter reduction in the internal carotid arteries bilaterally. Extensive, irregular surface, calcified plaque noted in the bulbs bilaterally. Consider CT angiography to further define these lesions.
== END 2017-03-02 15:19 | disposition home or self-care (01) | DRG 65 ==
LOC: ED 17:34 → 4A 20:29
PROVIDERS: ADMIT Internal Medicine; ATTEND Internal Medicine
DX: I63.9 Cerebral infarction, unspecified (principal); G81.94 Hemiplegia, unspecified affecting left nondominant side; I10 Essential (primary) hypertension; E11.9 Type 2 diabetes mellitus without complications; E88.81 Metabolic syndrome and other insulin resistance; Z79.82 Long term (current) use of aspirin; Z79.899 Other long term (current) drug therapy; Z79.4 Long term (current) use of insulin; Z90.49 Acquired absence of other specified parts of digestive tract; Z82.49 Family history of ischemic heart disease and other diseases of the circulatory system
CPT/HCPCS: 36415; 70450; 70544; 70551; 80048; 80061; 82962; 84484; 85025; 85610; 85670; 85730; 93005; 93010; 93306; 93880; A9270-GY; G8978-GP; G8979-GP; G8987-GO; G8988-GO; J1815; J1818